=== PATIENT | male | born 1995 ===

== ENCOUNTER 2024-07-20 16:37 | Emergency (ER) | payer SELFPAY ==
[~2024-07-20] VITALS: Ht 175.3 cm; Wt 79.5 kg
[2024-07-20 19:06] LABS: BASOPHILS % (AUTO) 0.2 % (0.0-2.0); EOSINOPHILS % (AUTO) 0.2 % (1.0-6.0); HEMATOCRIT 43.9 % (41-53); HEMOGLOBIN 14.3 g/dL (13.5-17.5); LYMPHOCYTES # (AUTO) 0.9 K/uL (1.0-4.8); LYMPHOCYTES % (AUTO) 6.1 % (22.0-44.0); MEAN CORPUSCULAR HEMOGLOBIN 28.2 pg (26.0-34.0); MEAN CORPUSCULAR HGB CONC 32.5 G/dL (31.0-37.0); MEAN CORPUSCULAR VOLUME 87 fL (80-100); MONOCYTES # (AUTO) 0.5 K/uL (0.1-1.0); MONOCYTES % (AUTO) 3.4 % (2.0-9.0); NEUTROPHILS # (AUTO) 13.4 K/uL (1.8-7.7); PLATELET COUNT (AUTO) 286 K/uL (150-450); RED BLOOD CELL COUNT(AUTO) 5.05 MIL/uL (4.50-5.90); RED CELL DISTRIBUTION WIDTH 14.2 % (11.5-14.5); WHITE BLOOD COUNT (AUTO) 14.9 K/uL (4.5-11.0)
[2024-07-20 19:16] LABS: ANION GAP 4 mmol/L (8-16); CALCIUM, TOTAL 8.6 mg/dL (8.8-10.5); CARBON DIOXIDE 31 mmol/L (22-29); CHLORIDE 104 mmol/L (98-107); CREATININE 0.91 mg/dL (0.60-1.30); GLOMERULAR FILTR. RATE CALC > 60 mL/min (>60); GLUCOSE,RANDOM 117 mg/dL (70-110); POTASSIUM 4.4 mmol/L (3.5-5.1); SODIUM SERUM 139 mmol/L (136-145); UREA NITROGEN, BLOOD 16 mg/dL (7-18)
[2024-07-20 19:20] LABS: NEUTROPHILS % (AUTO) 90.1 % (40.0-70.0)
[2024-07-20 19:25] VITALS: TEMP 96.8
[2024-07-20 19:27] LABS: ALCOHOL, BLOOD (SERUM) < 3 mg/dL (0-10)
[2024-07-20 19:30] VITALS: BP 118/81; PULSE 105; RESP 12; O2SAT 97
[2024-07-20 19:36] LABS: GLUCOMETER DEV NAME(LOC) ER.7; GLUCOSE,POINT OF CARE 99 MG/DL (70-110)
[2024-07-20] MEDS: ONDANSETRON HCL 4 MG/2 ML VIAL IM ONE (19:52)
[2024-07-20 20:02] LABS: COVID AG,FIA SOURCE NASAL SWAB
[2024-07-20 20:27] LABS: SARS-COV2 (COVID) ANTIGEN,FIA Negative (Negative)
== END 2024-07-20 21:15 | disposition home or self-care (01) ==
LOC: EMS 16:37
DX: T40.2X1A Poisoning by other opioids, accidental (unintentional), initial encounter (principal); R73.9 Hyperglycemia, unspecified; Z20.822 Contact with and (suspected) exposure to COVID-19; Y92.89 Other specified places as the place of occurrence of the external cause
CPT/HCPCS: 99285; 87426; 80048; 82962; 85025; 36415; 96372; G0480; J2405